=== PATIENT | male | born 1955 | race Caucasian/White ===

== ENCOUNTER 2017-02-26 06:36 | Day surgery (SDC) | payer MEDICAID ==
[~2017-02-26] VITALS: Ht 180.3 cm; Wt 83.6 kg
[~2017-02-26 06:36] MED LIST: AMLO-512 PO; ASPI-1093 PO; ATEN100T PO; ATOR40TA28 PO; DULO30CA2 PO; HYDR-305 PO; LISI-662 PO; NICO21T TD; SODIUM CHLORIDE 0.9% 1,000 ML IV ONE
[2017-02-26] MEDS ORDERED: SODIUM CHLORIDE 0.9% 1,000 ML IV ONE (06:49)
[2017-02-26] MEDS ORDERED: MIDAZOLAM HCL 2 MG/2 ML VIAL ONE (07:45)
[2017-02-26] MEDS ORDERED: FentaNYL CITRATE-PF 100 MCG/2 ML VIAL ONE (07:45)
[2017-02-26] MEDS ORDERED: MethylPREDNISolone SOD SUCC 125 MG/2 ML VIAL IVP ONE (09:00)
[2017-02-26] MEDS ORDERED: MethylPREDNISolone SOD SUCC 125 MG/2 ML VIAL ONE (09:18)
[2017-02-26] MEDS ORDERED: BENZOCAINE 20% 50 MCG/SPRAY 57 GM TP ONE (16:36)
[2017-02-26] MEDS ORDERED: LIDOCAINE HCL 2% 30 ML JELLY TP ONE (16:36)
[2017-02-26] MEDS ORDERED: LIDOCAINE HCL 4% 50 ML SOLUTION TP ONE (16:36)
[2017-02-26] MEDS ORDERED: ALBUTEROL SULFATE 2.5 MG/0.5 ML NEB SOLUTION NEB ONE (16:36)
[2017-02-26] MEDS ORDERED: OXYGEN THERAPY IH SCH (20:00)
== END 2017-02-26 10:15 | disposition home or self-care (01) ==
LOC: SURGERY 06:36
PROVIDERS: ATTEND Internal Medicine Critical Care Medicine
DX: J38.4 Edema of larynx (principal); B37.0 Candidal stomatitis; Z88.0 Allergy status to penicillin; M54.9 Dorsalgia, unspecified; Z87.891 Personal history of nicotine dependence; Z98.890 Other specified postprocedural states; Z86.19 Personal history of other infectious and parasitic diseases
CPT/HCPCS: 31623; 31624; 71010; 87015 ×2; 87070; 87077; 87101; 87186; 87205; 87220; 88108; 88312; 93005; J2250; J2930; J3010; J7030